=== PATIENT | female | born 1975 | race African-American/Black ===

== ENCOUNTER 2016-08-03 16:43 | Emergency (ER) | payer OTHER ==
[2016-08-03 17:11] VITALS: BP 169/96
[2016-08-03] MEDS ORDERED: CEPH-264 PO (17:23)
[2016-08-03] MEDS ORDERED: DEXT30SU15 PO (17:23)
--- NOTE | 2016-08-03 17:23 | PHYS DOC ---
Past Medical History Past Medical History: Bronchitis Additional Past Medical Histor: EPTOPIC , obesity Past Surgical History: Other Additional Past Surgical Histo: r knee Alcohol Use: None Drug Use: None Adult General Chief Complaint Chief Complaint: CHEST WALL PAIN HPI HPI Patient is a 41 year old female who presents with cough. Patient started developing cough, fevers and chills,& bodyaches on Wednesday. It is a nonproductive cough. No nausea vomiting or diarrhea. Patient is a nonsmoker. Patient also complains of chest wall pain in her rib cage from when she coughs. Patient denies possible . Patient states she's had no swelling or cramping of her legs. Review of Systems Review of Systems Constitutional: Positive fever and chills Eyes: Denies change in visual acuity, redness, or eye pain HENT: Positive nasal congestion and sore throat Respiratory: Positive cough and shortness of breath Cardiovascular: Chest wall pain only occurs with coughing. GI: Denies abdominal pain, nausea, vomiting, bloody stools or diarrhea : Denies dysuria or hematuria Musculoskeletal: Denies back pain or joint pain Integument: Denies rash or skin lesions Neurologic: Denies headache, focal weakness or sensory changes Endocrine: Denies polyuria or polydipsia Allergies Allergies Allergies Coded Allergies Type Severity Reaction Last Updated Verified No Known Drug Allergies 03/04/15 No Physical Exam Physical Exam Constitutional: Well developed, well nourished, minimal acute distress, non- toxic appearance. HENT: Normocephalic, atraumatic, oropharynx moist, no oral exudates, nose normal. Eyes: PERRLA, EOMI, conjunctiva normal, no discharge. Neck: Normal range of motion, no tenderness, supple, no stridor. Cardiovascular:Heart rate regular rhythm, no murmur Lungs & Thorax: Bilateral breath sounds clear to auscultation Abdomen: Bowel sounds normal, soft, no tenderness, no masses, no pulsatile masses. Skin: Warm, dry, no erythema, no rash. Back: No tenderness, no CVA tenderness. Extremities: No tenderness, no cyanosis, no edema. Neurologic: Alert and oriented X 3, normal motor function, normal sensory function, no focal deficits noted. Psychologic: Affect normal, judgement normal, mood normal. Current Patient Data Vital Signs Vital Signs Date Time Temp Pulse Resp B/P Pulse Ox O2 Delivery O2 Flow Rate FiO2 08/03/16 17:11 99.4 32 32 169/96 99 Room Air 99.4 EKG EKG [] Radiology/Procedures Radiology/Procedures [] Course & Med Decision Making Course & Med Decision Making Pertinent Labs and Imaging studies reviewed. (See chart for details) [] Dragon Disclaimer Dragon Disclaimer This electronic medical record was generated, in whole or in part, using a voice recognition dictation system. Departure Departure Impression: Primary Impression: Bronchitis Disposition: 09 ADMITTED INPATIENT Condition: STABLE Referrals: STEPHANIE NEVAREZ (PCP) Patient Instructions: Bronchitis Scripts Dextromethorphan Polistirex (Delsym)30 Mg/5 Ml Caterina.er.12h30 Mg PO BID PRN COUGH 4 Days Prov:LAYLA TOLENTINO MD 08/03/16 Cephalexin (Keflex)500 Mg Capsule1 Cap PO TID #21 CAP Prov:LAYLA TOLENTINO MD 08/03/16 LAYLA TOLENTINO MD Aug 03, 2016 17:23
--- NOTE | 2016-08-04 06:44 | EKG ---
[facility] [address] [place] [address] Test Date: 2016-08-03 Test Time: 17:00:47 Pat Name: EDILBERTO HENRY Department: Patient ID: [id number] Room: Gender: F At Risk Paraprofessional: SANTO ER : 1975 Requested By: LAYLA TOLENTINO Order Number: [id number] Reading MD: Mihai Del Valle Measurements Intervals Mission Rate: 95 P: 63 CT: 156 QRS: 84 QRSD: 76 T: 24 QT: 358 QTc: 453 Interpretive Statements SINUS RHYTHM Electronically Signed On 08-04-2016 13:17:18 [employer] by Mihai Del Valle
== END 2016-08-03 17:32 | disposition home or self-care (01) ==
LOC: ER 16:43
DX: J40 Bronchitis, not specified as acute or chronic (principal); M79.1 Myalgia; E66.9 Obesity, unspecified
CPT/HCPCS: 93005; 99283-25